=== PATIENT | female | born 1990 | race Caucasian/White ===

== ENCOUNTER 2017-09-03 | Inpatient (IN) | payer OTHER, SELFPAY | END 2017-09-06 10:50 | disposition home or self-care (01) | DRG 767 | PROVIDERS: Admitting Provider Obstetrics & Gynecology; Family Provider Nurse Practitioner Family; Visit Provider Obstetrics & Gynecology | DX: O13.4 Gestational [pregnancy-induced] hypertension without significant proteinuria, complicating childbirth (principal); Z30.2 Encounter for sterilization; Z37.0 Single live birth; Z3A.38 38 weeks gestation of pregnancy; O14.93 Unspecified pre-eclampsia, third trimester | CPT/HCPCS: 58605; 59409; 36415; 59025; 80048; 81001; 82800; 82962; 83735; 84450; 84460; 84550; 85014; 85018; 85025; 85378; 85384; 85610; 85730; 88302; 94762; C1758 ==